=== PATIENT | female | born 1995 | race Caucasian/White ===

== ENCOUNTER 2020-01-23 21:35 | Emergency (ER) | payer BC ==
[~2020-01-23] VITALS: Ht 167.6 cm; Wt 54.0 kg
--- NOTE | 2020-01-23 22:53 | PHYS DOC ---
Past Medical History Past Medical History: No Pertinent History Past Surgical History: Tonsillectomy Smoking Status: Current Every Day Smoker (electronic) Alcohol Use: Occasionally Drug Use: Marijuana (occas) General Adult EDM: Chief Complaint: ABDOMINAL PAIN HPI: HPI: Patient is a 24 year old female who presents with 2-day history of right upper quadrant pain that is stabbing and coming in waves and radiates to her chest and back. Pain is currently 10 out of 10 intensity. Symptoms are worse with eating. Patient was seen at [facility] yesterday and had a CT scan. Patient was feeling better after fentanyl and GI cocktail. Pain returned this evening after eating. Patient has had nausea vomiting but no fevers chills cough or shortness of breath. Review of Systems: Review of Systems: Constitutional: Denies fever or chills. [] Eyes: Denies change in visual acuity. [] HENT: Denies nasal congestion or sore throat. [] Respiratory: Denies cough or shortness of breath. [] Cardiovascular: Denies chest pain or edema. [] GI: Patient complains abdominal pain nausea vomiting but no diarrhea or blood in the stool : Denies dysuria. [] Musculoskeletal: Denies back pain or joint pain. [] Integument: Denies rash. [] Neurologic: Denies headache, focal weakness or sensory changes. [] Endocrine: Denies polyuria or polydipsia. [] Lymphatic: Denies swollen glands. [] Psychiatric: Denies depression or anxiety. [] Heart Score: Risk Factors: Risk Factors: DM, Current or recent (<one month) smoker, HTN, HLP, family history of CAD, obesity. Risk Scores: Score 0 - 3: 2.5% MACE over next 6 weeks - Discharge Home Score 4 - 6: 20.3% MACE over next 6 weeks - Admit for Clinical Observation Score 7 - 10: 72.7% MACE over next 6 weeks - Early Invasive Strategies Current Medications: Current Medications Medications (Trade) Dose Ordered Sig/Sita Start Time Stop Time Status Last Admin Dose Admin Fentanyl Citrate (Fentanyl 2ml Vial) 50 mcg 1X ONCE 01/23/20 23:00 01/23/20 23:01 UNV Ondansetron HCl (Zofran) 4 mg 1X ONCE 01/23/20 23:00 01/23/20 23:01 UNV Sodium Chloride 1,000 ml @ 1,000 mls/hr 1X ONCE 01/23/20 23:00 01/23/20 23:59 UNV Allergies: Allergies: Allergies Coded Allergies Type Severity Reaction Last Updated Verified Sulfa (Sulfonamide Antibiotics) Allergy Severe Rash 01/23/20 Yes Uncoded Allergies Type Severity Reaction Last Updated Verified pencillin Allergy Severe Rash 01/23/20 Physical Exam: PE: Constitutional: Well developed, well nourished, no acute distress, non-toxic appearance. [] HENT: Normocephalic, atraumatic, bilateral external ears normal, no trismus nose normal. [] Eyes: PERRLA, EOMI, conjunctiva normal, no discharge. [] Neck: Normal range of motion, no tenderness, supple, no stridor. [] Cardiovascular:Heart rate regular rhythm, peripheral pulse intact cap refill is brisk there is a third Lungs & Thorax: Bilateral breath sounds clear, no respiratory distress Abdomen: Soft tenderness in the right upper quadrant without guarding or rebound no masses, no pulsatile masses. [] Skin: Warm, dry, no erythema, no rash. [] Back: No tenderness, no CVA tenderness. [] Extremities: No tenderness, no cyanosis, no clubbing, ROM intact, no edema. [] Neurologic: Alert and oriented X 3, normal motor function, normal sensory function, no focal deficits noted. [] Psychologic: Affect normal, judgement normal, mood normal. [] Current Patient Data: Labs: Laboratory Tests Test 01/23/20 23:30 White Blood Count 12.4 x10^3/uL Red Blood Count 4.42 x10^6/uL Hemoglobin 12.6 g/dL Hematocrit 37.4 % Mean Corpuscular Volume 85 fL Mean Corpuscular Hemoglobin 29 pg Mean Corpuscular Hemoglobin Concent 34 g/dL Red Cell Distribution Width 13.0 % Platelet Count 347 x10^3/uL Neutrophils (%) (Auto) 85 % Lymphocytes (%) (Auto) 10 % Monocytes (%) (Auto) 5 % Eosinophils (%) (Auto) 0 % Basophils (%) (Auto) 0 % Neutrophils # (Auto) 10.6 x10^3/uL Lymphocytes # (Auto) 1.2 x10^3/uL Monocytes # (Auto) 0.6 x10^3/uL Eosinophils # (Auto) 0.0 x10^3/uL Basophils # (Auto) 0.0 x10^3/uL Maternal Serum HCG Beta Subunit < 1 mIU/mL Sodium Level 139 mmol/L Potassium Level 3.6 mmol/L Chloride Level 103 mmol/L Carbon Dioxide Level 26 mmol/L Anion Gap 10 Blood Urea Nitrogen 12 mg/dL Creatinine 0.8 mg/dL Estimated GFR (Cockcroft-Gault) 87.4 BUN/Creatinine Ratio 15 Glucose Level 131 mg/dL Calcium Level 9.4 mg/dL Total Bilirubin 0.8 mg/dL Aspartate Amino Transf (AST/SGOT) 89 U/L Alanine Aminotransferase (ALT/SGPT) 96 U/L Alkaline Phosphatase 74 U/L Total Protein 7.7 g/dL Albumin 4.3 g/dL Albumin/Globulin Ratio 1.3 Lipase 103 U/L Current Medications Medications (Trade) Dose Ordered Sig/Sita Route PRN Reason Start Time Stop Time Status Last Admin Dose Admin Ondansetron HCl (Zofran) 4 mg 1X ONCE IVP 01/23/20 23:00 01/23/20 23:01 DC 01/23/20 23:35 Sodium Chloride 1,000 ml @ 1,000 mls/hr 1X ONCE IV 01/23/20 23:00 01/23/20 23:59 DC 01/23/20 23:34 Fentanyl Citrate (Fentanyl 2ml Vial) 50 mcg 1X ONCE IVP 01/23/20 23:00 01/23/20 23:01 DC 01/23/20 23:34 Multi-Ingredient Mouthwash/Gargle (Gi Cocktail) 20 ml 1X ONCE SWSW 01/24/20 00:15 01/24/20 00:16 DC 01/24/20 00:05 Haloperidol Lactate (Haldol Inj) 5 mg 1X ONCE IVP 01/24/20 00:45 01/24/20 00:46 UNV Vital Signs: Vital Signs Date Time Temp Pulse Resp B/P (MAP) Pulse Ox O2 Delivery O2 Flow Rate FiO2 01/23/20 22:37 98.1 87 26 141/74 (96) 100 Room Air 98.1 EKG: EKG: [] Radiology/Procedures: Radiology/Procedures: [][facility] [address] [place] [address] IMAGING REPORT Signed PATIENT: MARY BRADY ACCOUNT: [id number] : 1995 LOCATION: ER AGE: 24 SEX: F EXAM STATUS: REG ER ORD. PHYSICIAN: ALINE TAM MD REASON: RUQ PAIN X COUPLE OF DAYS. N/V. PREV CT OF ABD YESTERDAY. PROCEDURE: ABDOMEN LTD EXAMINATION: ABDOMEN LTD 01/23/2020 10:47 PM INDICATION: Right upper quadrant pain for a couple of days, nausea and vomiting. TECHNIQUE: Givens scale and color Doppler ultrasound images of the right upper quadrant were obtained. COMPARISON: CT abdomen and pelvis 01/22/2020. FINDINGS: Liver: The liver is normal in size measuring 13.6 cm in length. Normal hepatic echogenicity. No focal liver lesion. Gallbladder: The gallbladder is normal in caliber. No cholelithiasis or sludge. The gallbladder wall is normal in thickness measuring 2 mm. Sonographic Brooke's sign is negative. Bile ducts: The common bile duct is normal measuring 5 mm. No intrahepatic biliary duct dilatation. Right kidney: The right kidney measures 10.1 x 4.5 x 3.6 cm. Normal cortical thickness and echogenicity. No hydronephrosis. Other: Abdominal aorta and inferior vena cava are normal where visualized. The pancreas is normal where visualized. IMPRESSION: Normal right upper quadrant ultrasound. Electronically signed by: Juana Mar MD (01/23/2020 11:54 PM) [id number] DICTATED and SIGNED BY: JUANA MAR MD DATE: 01/23/20 2354 [facility] [address] [place], [place] [id number] IMAGING REPORT Signed PATIENT: MARY BRADY ACCOUNT: [id number] : 1995 LOCATION: ER AGE: 24 SEX: F EXAM STATUS: REG ER ORD. PHYSICIAN: ALINE TAM MD REASON: r, abd pain PROCEDURE: CT ABD PELV W/ IV CONTRST ONLY Exam: CT abdomen/pelvis with intravenous contrast Indication: Right abdominal pain Comparison: Abdominal ultrasound 01/23/2020, CT abdomen and pelvis 01/22/2020 Technique: Helical CT imaging performed of the abdomen and pelvis after the intravenous administration of 75 mL Omnipaque 300 intravenous contrast. Sagittal and coronal reformats were obtained. One or more of the following individualized dose reduction techniques were utilized for this examination: 1. Automated exposure control 2. Adjustment of the mA and/or kV according to patient size 3. Use of iterative reconstruction technique. Findings: Lower chest: Normal. Liver: The liver is normal in size. Periportal edema is redemonstrated. There is no focal lesion. Hepatic, portal, and superior mesenteric veins are patent. Gallbladder/Biliary Tree: Normal. Pancreas: Normal. Spleen: Normal. Adrenal Glands: Normal. Kidneys/Ureters/Bladder: Kidneys are normal in size and enhance symmetrically. A few tiny subcentimeter hypodensities bilaterally characterize. Ureters and bladder are unremarkable. Reproductive Organs: The uterus is anteverted. Ovaries are unremarkable.. Stomach, small bowel, and colon: The stomach is distended with fluid. Small bowel is normal. Colon is normal. Probable normal appendix visualized. Vasculature: Abdominal aorta and inferior vena cava are normal. Lymph Nodes: No lymphadenopathy. Peritoneum and retroperitoneum: There is trace free fluid in the pelvis. No free air. Bones: No acute osseous abnormality. Impression: 1. Unchanged periportal edema, of unclear etiology. This could be related to hepatitis, volume overload, or aggressive IV hydration. 2. 2. No new abnormality. Electronically signed by: Juana Mar MD (01/24/2020 2:02 AM) [id number] DICTATED and SIGNED BY: JUANA MAR MD DATE: 01/24/20 0202 Course & Med Decision Making: Course & Med Decision Making Pertinent Labs and Imaging studies reviewed. (See chart for details) [] Patient reassessed at 12:38 AM, initially pain is better but now it is returned in the same intensity. Re-exam of the abdomen and she still has epigastric and right upper quadrant tenderness. Patient's ultrasound is unremarkable. Patient is mildly elevated LFTs and white blood cell count is up a little bit from yesterday. Due to patient's significant pain I think she probably needs another CAT scan this evening as progressed since yesterday. Patient reassessed at 2:15 AM and feels significantly better. CT read demonstrates some mild periportal edema patient some mild LFTs that are elevated. Patient has a nonsurgical abdomen, patient could have symptoms due to the inflamed liver with a mildly elevated LFTs or pain due to distended stomach. Patient either way will need to follow-up with a telephone information clerk and have endoscopy. Patient was placed on ulcer medications at [facility] yesterday and she will continue those. I will add Reglan and Zofran and give a GI referral. MIPS measure: hCG checked and is negative Dragon Disclaimer: Dragon Disclaimer: This electronic medical record was generated, in whole or in part, using a voice recognition dictation system. Departure Departure Impression: Primary Impression: Upper abdominal pain Disposition: DC HOME SELF CARE/HOMELESS Condition: STABLE Referrals: NO PCP (PCP) KIERA BRYANT MD 2-3 days Patient Instructions: Abdominal Pain Additional Instructions: EMERGENCY DEPARTMENT GENERAL DISCHARGE INSTRUCTIONS THANK YOU for coming to [facility] Emergency Department (ED) today and trusting us with your care. We trust that you had a positive experience in our Emergency Department. If you wish to speak to the department Management you can contact the title department manager at . YOUR FOLLOW UP INSTRUCTIONS ARE FOLLOWS: Do you have a private doctor? If you do not have a private doctor, please ask for a resource list of physicians or clinics that may be able to assist you with follow up care. The Emergency Physician has interpreted your x-rays. The X-ray specialist will also review them. If there is a change in the findings you will be notified in 48 hours when at all possible. A lab test or lab culture may have been done, your results will be reviewed and you will be notified if you need a change in treatment. ADDITIONAL INSTRUCTIONS AND INFORMATION Your care today has been supervised by a physician who is specially trained in emergency care. Many problems require more than one evaluation for a complete diagnosis and treatment. We recommend that you schedule your follow up appointment as recommended to ensure complete treatment of your illness or injury. If you are unable to obtain follow up care and continue to have a problem, or if your condition worsens we recommend that you return to the ED. We are not able to safely determine your condition over the phone nor are we able to give sound medical advice over the phone. For these safety reasons, if you call for medical advice we will ask you to come to the ED for further evaluation If you have any questions regarding these discharge instructions please call the ED at . SAFETY INFORMATION In the interest of safety, wellness, and injury prevention; we encourage you to wear your seatbelt, if you smoke; quit smoking, and we encourage your family to use protective helmet for bicycling and other sporting events that present an increased risk for head injury. IF YOUR SYMPTOMS WORSEN OR NEW SYMPTOMS DEVELOP, OR YOU HAVE CONCERNS ABOUT YOUR CONDITION; OR IF YOUR CONDITION WORSENS WHILE YOU ARE WAITING FOR YOUR FOLLOW UP APPOINTMENT; EITHER CONTACT YOUR PRIMARY CARE DOCTOR, THE PHYSICIAN WHOSE NAME AND NUMBER YOU WERE GIVEN, OR RETURN TO THE ED IMMEDIATELY. Scripts Ondansetron Hcl (ZOFRAN) 4 Mg Tablet 1 TAB PO Q6HRS for nausea, #20 TAB Prov: ALINE TAM MD 01/24/20 Hydrocodone/Apap 5-325 (NORCO 5-325 TABLET) 1 Each Tablet 1-2 EACH PO PRN Q6HRS PRN for PAIN, #15 as needed for pain Prov: ALINE TAM MD 01/24/20 Metoclopramide Hcl (REGLAN) 10 Mg Tablet 1 TAB PO QID for 10 Days, #40 TAB 0 Refills before food and bedtime Prov: ALINE TAM MD 01/24/20 ALINE TAM MD Jan 23, 2020 22:53
[2020-01-23] MEDS ORDERED: fentaNYL PF VIAL 100 MCG/2 ML VIAL IVP ONE (23:00)
[2020-01-23] MEDS ORDERED: IV NORMAL SALINE 1000ML BAG 1,000 ML IV ONE (23:00)
[2020-01-23] MEDS ORDERED: ONDANSETRON PF 4 MG/2 ML VIAL. IVP ONE (23:00)
[2020-01-23 23:36] LABS: BASO % 0 % (0-3); EOS % 0 % (0-3); HEMATOCRIT 37.4 % (36.0-47.0); HEMOGLOBIN 12.6 g/dL (12.0-15.5); LYMPH # 1.2 x10^3/uL (1.0-4.8); LYMPH % 10 % (24-48); MEAN CORPUSCULAR HEMOGLOBIN 29 pg (25-35); MEAN CORPUSCULAR HGB CONC 34 g/dL (31-37); MEAN CORPUSCULAR VOLUME 85 fL (79-100); MONO # 0.6 x10^3/uL (0.0-1.1); MONO % 5 % (0-9); NEUT # 10.6 x10^3/uL (1.8-7.7); NEUT % 85 % (31-73); PLATELET COUNT 347 x10^3/uL (140-400); RED BLOOD COUNT 4.42 x10^6/uL (3.50-5.40); WHITE BLOOD COUNT 12.4 x10^3/uL (4.0-11.0)
[2020-01-23 23:45] LABS: CALCIUM 9.4 mg/dL (8.5-10.1); CREATININE 0.8 mg/dL (0.6-1.0); GFR 87.4; POTASSIUM 3.6 mmol/L (3.5-5.1)
[2020-01-23 23:51] LABS: ALBUMIN 4.3 g/dL (3.4-5.0); ALBUMIN/GLOBULIN RATIO 1.3 (1.0-1.7); TOTAL BILIRUBIN 0.8 mg/dL (0.2-1.0); TOTAL PROTEIN 7.7 g/dL (6.4-8.2)
--- NOTE | 2020-01-23 23:57 | RAD ---
EXAMINATION: ABDOMEN LTD 01/23/2020 10:47 PM INDICATION: Right upper quadrant pain for a couple of days, nausea and vomiting. TECHNIQUE: Givens scale and color Doppler ultrasound images of the right upper quadrant were obtained. COMPARISON: CT abdomen and pelvis 01/22/2020. FINDINGS: Liver: The liver is normal in size measuring 13.6 cm in length. Normal hepatic echogenicity. No focal liver lesion. Gallbladder: The gallbladder is normal in caliber. No cholelithiasis or sludge. The gallbladder wall is normal in thickness measuring 2 mm. Sonographic Brooke's sign is negative. Bile ducts: The common bile duct is normal measuring 5 mm. No intrahepatic biliary duct dilatation. Right kidney: The right kidney measures 10.1 x 4.5 x 3.6 cm. Normal cortical thickness and echogenicity. No hydronephrosis. Other: Abdominal aorta and inferior vena cava are normal where visualized. The pancreas is normal where visualized. IMPRESSION: Normal right upper quadrant ultrasound. Electronically signed by: Juana Mar MD (01/23/2020 11:54 PM) [id number]
[2020-01-24] MEDS ORDERED: LIDO:MAALOX 1:1 20 ML SINGLE DOSE. SWSW ONE (00:15)
[2020-01-24] MEDS ORDERED: HALOPERIDOL LACTATE 5 MG/ML VIAL. IVP ONE (00:45)
[2020-01-24] MEDS ORDERED: CONTRAST GIVEN. MC PRN (01:00)
[2020-01-24] MEDS ORDERED: MORPHINE SULFATE 4 MG/ML VIAL. IV ONE (01:00)
[2020-01-24] MEDS ORDERED: IOHEXOL 300 MG/ML 100ML VIAL. IV ONE (01:00)
--- NOTE | 2020-01-24 02:05 | RAD ---
Exam: CT abdomen/pelvis with intravenous contrast Indication: Right abdominal pain Comparison: Abdominal ultrasound 01/23/2020, CT abdomen and pelvis 01/22/2020 Technique: Helical CT imaging performed of the abdomen and pelvis after the intravenous administration of 75 mL Omnipaque 300 intravenous contrast. Sagittal and coronal reformats were obtained. One or more of the following individualized dose reduction techniques were utilized for this examination: 1. Automated exposure control 2. Adjustment of the mA and/or kV according to patient size 3. Use of iterative reconstruction technique. Findings: Lower chest: Normal. Liver: The liver is normal in size. Periportal edema is redemonstrated. There is no focal lesion. Hepatic, portal, and superior mesenteric veins are patent. Gallbladder/Biliary Tree: Normal. Pancreas: Normal. Spleen: Normal. Adrenal Glands: Normal. Kidneys/Ureters/Bladder: Kidneys are normal in size and enhance symmetrically. A few tiny subcentimeter hypodensities bilaterally characterize. Ureters and bladder are unremarkable. Reproductive Organs: The uterus is anteverted. Ovaries are unremarkable.. Stomach, small bowel, and colon: The stomach is distended with fluid. Small bowel is normal. Colon is normal. Probable normal appendix visualized. Vasculature: Abdominal aorta and inferior vena cava are normal. Lymph Nodes: No lymphadenopathy. Peritoneum and retroperitoneum: There is trace free fluid in the pelvis. No free air. Bones: No acute osseous abnormality. Impression: 1. Unchanged periportal edema, of unclear etiology. This could be related to hepatitis, volume overload, or aggressive IV hydration. 2. 2. No new abnormality. Electronically signed by: Juana Mar MD (01/24/2020 2:02 AM) [id number]
[2020-01-24] MEDS ORDERED: METO10TA81 PO (02:27)
[2020-01-24] MEDS ORDERED: HYDR-3164 PO (02:27)
[2020-01-24] MEDS ORDERED: ONDA4TAB7 PO (02:27)
[2020-01-24 02:50] VITALS: BP 90/59
== END 2020-01-24 02:59 | disposition home or self-care (01) ==
LOC: ER 21:35
DX: R10.11 Right upper quadrant pain (principal); R11.2 Nausea with vomiting, unspecified; R60.0 Localized edema; F17.200 Nicotine dependence, unspecified, uncomplicated; F12.90 Cannabis use, unspecified, uncomplicated; Z90.89 Acquired absence of other organs; Z88.0 Allergy status to penicillin; Z88.2 Allergy status to sulfonamides
CPT/HCPCS: 36415; 74177; 76705; 80053; 83690; 84702; 85025; 96361; 96374; 96375; 99285; J1630; J2270; J2405; J3010; J7030; Q9967